=== PATIENT | female | born 1955 | race Caucasian/White ===

== ENCOUNTER → 2016-10-28 | Outpatient (CLI) | payer BC ==
--- NOTE | 2016-10-28 14:59 | RADRPT ---
PROCEDURE: XR Pelvis 1 View and right Hip 1 Views. CLINICAL INDICATION: Right hip pain. TECHNIQUE: AP low pelvis and frog-leg lateral views of the right hip were performed. COMPARISON: August 14, 2014 FINDINGS: Osteopenia is identified. Left hip replacement is seen. Prosthetic components appear in appropriat e position alignment. No destructive bony lesions are observed. Moderate narrowing of the right hi p joint is seen. Soft tissues are unremarkable. IMPRESSION: Osteopenia. Moderate osteoarthritis of the right hip. Left hip replacement. Prosthetic components appear in appropriate position and alignment. If further characterization is needed CT or MRI could be helpful. RPTAT: AA .Bryan Randle MD, MD Date Time Electronically viewed and signed by .Bryan Radnle MD, on 10/28/2016 14:58 .P/
--- NOTE | 2016-10-28 16:20 | CONS ---
Date/Time of Note Date/Time of Note DATE: 10/28/16 TIME: 16:13 Assessment/Plan Assessment/Plan Additional Assessment/Plan Assessment plan The patient and her were reassured that she is definitely not a candidate for a right total hip arthroplasty. The left total hip arthroplasty has been very successful. She has been advised that she may have some symptomatic relief taking Celebrex 200 mg as needed for painSit to continue with her exercise regimeTime educated about hip replacements the benefits and risksTime she is to return again in 2 weeks if her symptoms persist Consultation Date/Type/Reason Admit Date/Time Date of Consultation: Oct 28, 2016 Hx of Present Illness History pain in the right hip She had had a left total hip arthroplasty carried out by Dr. Petty in 2009. This was an excellent result. She is now seen for her right hip. She states often she underwent surgery by a corn cutter operator for a problem of the second left toe on 09/09/2016 she was wearing a boot for a month and she believes that with the boot she may have altered her gait pattern and developed a pain in the right hip.Some stage she had noted some pain radiating to the right thigh and calf but this is now disappearedIn current complaints has no pain at all today in the right hip. The only time she has experienced pain is when she is on her feet. She denies any pain waking her up at night, she denies any problem putting on her socks and shoes. She denies any difficulty sitting in the low chair or in the tub. The general health has been good. She is accompanied by her . Exam/Review of Systems Exam Physical examination confined to the right hip and right lower extremity. Examination of the lumbar spine reveals a full range of motion with negative straight leg raising on the right to 90 without any neurological deficit. Examination of the right hip reveals no tenderness no deformity or no shortening. Hip motion is identical on both sides with flexion 140 abduction 30 abduction 35 external rotation 45 internal rotation 45 She walks well with any without any disturbance of stones or gait she is able to walk on her heels without any difficultyIs also able to do deep knee bends without any difficulty. Imaging X-rays done and comparing with prior x-rays shows a well executed left total hip arthroplasty the right hip appears to be quite normal with very minimal narrowing of the joint space prior x-rays were reviewed and the joint space compared to the prior x-rays and it shows a slight diminution in the current joint space Diagnosis mild osteoarthritis right hip #1 2 status post successful left total hip arthroplasty MAY HAYES Oct 28, 2016 16:20
== END | disposition home or self-care (01) ==
LOC: HKI 14:48
DX: M25.551 Pain in right hip (principal); M79.661 Pain in right lower leg; Z96.652 Presence of left artificial knee joint
CPT/HCPCS: 73502; G0463